=== PATIENT | female | born 1985 | race Caucasian/White ===

== ENCOUNTER 2022-05-16 00:46 | Inpatient (IN) ==
--- NOTE | 2022-05-16 01:15 | Emergency Department Note ---
History of Present Illness General Chief complaint: Alcohol Intoxication Time Seen by Provider: 05/16/22 01:03 History of Present Illness 36-year-old female presents emergency department reportedly was at [facility] for alcohol abuse and she was found to be intoxicated and they sent her via EMS for medical clearance. Patient is a very poor historian as to her current condition. Reportedly she had been drinking alcohol up until the time she presented to the rehab. There is been no reported trauma per EMS. Past Med/Surg History Immunizations: Past medical history is unobtainable at this time due to alcohol intoxication Review of Systems Unobtainable due to mental health condition and Unobtainable due to reduced consciousness Physical Exam GENERAL: Patient is awake alert but not cooperative EYES: The conjunctivae are clear. The pupils are round and reactive. EARS, NOSE, MOUTH AND THROAT: The nose is without any evidence of any deformity. Mucous membranes are moist. Tongue is midline. NECK: The neck is nontender and supple. RESPIRATORY: Normal respiratory effort is noted there is no evidence of wheezing rhonchi or rales CARDIOVASCULAR: Regular rate and rhythm noted there no murmurs rubs or gallops normal S1 normal S2. GASTROINTESTINAL: The abdomen is soft. Abdomen is nontender. PELVIS: The Pelvis is stable. No tenderness to palpation is noted. BACK: No midline tenderness or or step-off noted range of motion in flexion extension as well as rotation no signs of muscle spasm noted MUSCULOSKELETAL/EXTREMITIES: There is no evidence of gross deformity full range of motion is noted in the hips and shoulders. SKIN: There is no obvious evidence of any rash. Patient has an area of ecchymosis in the right upper extremity NEUROLOGIC: Patient is awake but not cooperative agitated Course Reevaluation(s) Reevaluation #1: Patient is somnolent at this time initially she was agitated. Patient's blood alcohol is 535 patient will be admitted. The case was discussed with the hospitalist from [facility] for admission Time: 04:20 Medical Decision Making Medical Records Attestation: I reviewed the patient's medical records. Home Medications Current Medication List: was personally reviewed by me Laboratory Data Attestation: I reviewed the patient's lab results. Result diagrams: 05/16/22 01:20 Lab Results 05/16/22 05/16/22 Range/Units 01:20 01:20 Sodium 143 (136-145) mmol/L Potassium 4.0 (3.5-5.1) mmol/L Chloride 106 (98-107) mmol/L Carbon Dioxide 24 (21-32) mmol/L Anion Gap 13 H (3-11) BUN 8 (6-23) mg/dl Creatinine 0.69 (0.6-1.2) mg/dl Est Cr Clr Drug Dosing Not Reportable Est GFR ( Amer) 128.0 ml/min Est GFR (Non-Af Amer) 110.4 ml/min BUN/Creatinine Ratio 11.6 (10-20) Glucose 96 (70-99(Fasting)) mg/dl Calcium 8.6 (8.5-10.1) mg/dl Total Bilirubin 0.4 (0.2-1.0) mg/dl AST 69 H (13-39) U/L ALT 57 H (7-52) U/L Alkaline Phosphatase 98 (34-104) U/L Total Protein 8.0 (6.0-8.3) gm/dl Albumin 4.5 (3.4-5.0) gm/dl Globulin 3.5 (2.5-4.0) gm/dl Albumin/Globulin Ratio 1.3 (0.9-2) Ethyl Alcohol mg/dL 535.7 H (<10.0) mg/dl MDM Narrative Medical decision making differential diagnosis includes alcohol intoxication alcohol abuse, drug abuse, electrolyte abnormality. Plan is to check alcohol level, observe Patient has a blood alcohol of 535. Patient cannot be medically cleared at this time. Speaking with the major case detective the patient will need inpatient alcohol detoxification. This case was discussed with Dr. Aragon from [facility] for admission Impression & Plan Alcoholic intoxication Discharge Plan Visit Data Chief Complaint: Alcohol Intoxication ED Provider: Yevgeniy Hall Discharge Problem: Alcoholic intoxication Patient Disposition: Being Evaluated by Hospitalist Forms Stand Alone Forms: My [facility] Referrals Referrals: PCP,NO [Primary Care Provider] -
[2022-05-16 02:11] LABS: Alanine Aminotransferase 57 U/L (7-52); Albumin Globulin Ratio 1.3 (0.9-2); Albumin Level 4.5 gm/dl (3.4-5.0); Alkaline Phosphatase 98 U/L (34-104); Anion Gap 13 (3-11); Aspartate Aminotransferase 69 U/L (13-39); BUN Creatinine Ratio 11.6 (10-20); Bilirubin,Total 0.4 mg/dl (0.2-1.0); Blood Urea Nitrogen 8 mg/dl (6-23); Calcium 8.6 mg/dl (8.5-10.1); Carbon Dioxide 24 mmol/L (21-32); Chloride 106 mmol/L (98-107); Est GFR (Non-African American) 110.4 ml/min; Globulin 3.5 gm/dl (2.5-4.0); Glucose 96 mg/dl (70-99(Fasting)); Sodium 143 mmol/L (136-145)
[2022-05-16] MEDS ORDERED: MULTI-VITAMIN INFUSION 10 ML, THIAMINE HCL 100 MG, FOLIC ACID 1 MG in SODIUM CHLORIDE 0... IV ONE (04:26)
[2022-05-16] MEDS ORDERED: ONDANSETRON INJ 2 MG/ML 2 ML VIAL ONE (04:27)
[2022-05-16] MEDS ORDERED: GABAPENTIN 600 MG TAB PO STA (05:09)
[2022-05-16] MEDS ORDERED: PROMETHAZINE HCL 6.25 MG in SODIUM CHLORIDE 0.9% 50 ML IV PRN ×2 (05:09→06:15)
[2022-05-16] MEDS ORDERED: GABAPENTIN 1200MG ALCOHOL WITHDRAWAL LOAD PO STA (05:15)
[2022-05-16] MEDS ORDERED: LORazepam 3 MG in SYRINGE 0 ML IV PRN (05:15)
[2022-05-16] MEDS ORDERED: Ativan IV Alcohol Withdrawal--Active Protocol IV PRN (05:15)
--- NOTE | 2022-05-16 05:17 | History & Physical Report ---
Date of Service May 16, 2022 Assessment & Plan (1) Alcohol withdrawal: Plan: Alcoholic hepatitis, good prognosis with Maddrey's DF score of less than 1 point. mood disorder, patient denies suicidality thrombocytopenia possibly from chronic liver disease Medical telemetry FABRICIO S, DT precautions Social service re: discharge planning/alcohol rehab placement DVT prophylaxis. SCDs Re: Thrombocytopenia Full code Text document was generated using Quu voice recognition software. It may contain grammatical or spelling errors. Kindly contact undersigned for clarification of any documentation item in question. History of Present Illness Chief Complaint: Detox Primary Care Provider: NO PCP History obtained from patient and records. Medical history significant for alcohol abuse, mood disorder. Patient is a resident of [place] who is in town after attempting to have herself admitted at a local detox facility. Patient had an [employer] school boat driver dropped her off at the local [facility] seeking detox. Patient noted to be drunk and disoriented. Sent to the ER for evaluation. Patient initially with reduced consciousness upon arrival at the ER. Patient patient currently more awake. Patient denies headache, chest pain, SOB, abdominal pain, suicidality. No prior history of alcohol withdrawal seizures. Medical History as above Surgical History : Kidney stone procedure, vaginal deliveries Family History : Alcoholism Personal/Social history : Non-smoker, alcohol abuse, realtor Allergies Allergy/AdvReac Type Severity Reaction Status Date / Time No Known Allergies Allergy Verified 05/16/22 04:30 Home Medications Medication Instructions Recorded Confirmed Type doxepin 150 mg capsule 150 mg PO HS 05/16/22 05/16/22 History sertraline 100 mg tablet (Zoloft) 150 mg PO DAILY 05/16/22 05/16/22 History Past Med/Surg History Social History Smoking Status: Current every day smoker Tobacco Type: E-cigarettes / Vaping Hx Alcohol Use: Yes Alcohol type: hard liquor Hx Substance Use: No Preferred Language: Amharic Communication Ability: Effective Board Member Required: No Beliefs That Will Affect Care: None Current Living Situation: Alone Feels Safe at Home: Yes Safety Concerns: Feels Safe At This Time Assistive Devices: None Review of Systems Review of Systems: As per HPI, all other systems reviewed and negative Physical Exam Physical Exam: GENERAL: Comfortable, slightly uncomfortable, restless, no respiratory distress SKIN: Normal color, warm HEENT: [place] palpebral conjunctivae, no ptosis, dry buccal mucosa NECK : Supple, no tenderness CHEST : CTA, no tenderness HEART : Tachycardic, no obvious murmurs ABDOMEN: Some distention, nontender EXTREMITIES : No LE swelling/tenderness, no other conspicuous deformities noted NEUROLOGIC : Coherent, no facial asymmetry, no other gross focality Results & Data Results & Data ([facility]) Vital Signs (Past 12 Hours) Vital Signs Pulse Pulse Resp BP BP Pulse Ox O2 Del Method 05/16/22 03:32 93 H 24 124/90 95 Room Air 05/16/22 05:14 108 H 18 109/75 94 Room Air Laboratory Results Laboratory Results Sodium 143 mmol/L (136-145) 05/16/22 01:20 Potassium 4.0 mmol/L (3.5-5.1) 05/16/22 01:20 Chloride 106 mmol/L (98-107) 05/16/22 01:20 Carbon Dioxide 24 mmol/L (21-32) 05/16/22 01:20 Anion Gap 13 (3-11) H 05/16/22 01:20 BUN 8 mg/dl (6-23) 05/16/22 01:20 Creatinine 0.69 mg/dl (0.6-1.2) 05/16/22 01:20 Est Cr Clr Drug Dosing Not Reportable 05/16/22 01:20 Est GFR ( Amer) 128.0 ml/min 05/16/22 01:20 Est GFR (Non-Af Amer) 110.4 ml/min 05/16/22 01:20 BUN/Creatinine Ratio 11.6 (10-20) 05/16/22 01:20 Glucose 96 mg/dl (70-99(Fasting)) 05/16/22 01:20 Calcium 8.6 mg/dl (8.5-10.1) 05/16/22 01:20 Total Bilirubin 0.4 mg/dl (0.2-1.0) 05/16/22 01:20 AST 69 U/L (13-39) H 05/16/22 01:20 ALT 57 U/L (7-52) H 05/16/22 01:20 Alkaline Phosphatase 98 U/L (34-104) 05/16/22 01:20 Total Protein 8.0 gm/dl (6.0-8.3) 05/16/22 01:20 Albumin 4.5 gm/dl (3.4-5.0) 05/16/22 01:20 Globulin 3.5 gm/dl (2.5-4.0) 05/16/22 01:20 Albumin/Globulin Ratio 1.3 (0.9-2) 05/16/22 01:20 Ethyl Alcohol mg/dL 535.7 mg/dl (<10.0) H 05/16/22 01:20 SARS-CoV-2, RNA, NAAT NEGATIVE (NEGATIVE) 05/16/22 04:20 Code Status & VTE Plan VTE Prophylaxis Plan VTE Prophylaxis will be ordered: Yes
[2022-05-16] MEDS ORDERED: LORazepam 2 MG/2 ML SYR ONE (05:23)
[2022-05-16] MEDS: LORazepam 2 MG in SYRINGE 0 ML IV PRN (05:26)
[2022-05-16 05:29] LABS: Basophils # (auto) 0.04 K/uL (0-0.2); Basophils % (auto) 0.5 %; Eosinophils # (auto) 0.04 K/uL (0-0.50); Eosinophils % (auto) 0.5 %; Hematocrit (blood only) 38.4 % (34.1-44.9); Hemoglobin 13.2 g/dl (12.0-16.0); Immature Granulocytes # (auto) 0.03 K/uL (0.00-0.02); Immature Granulocytes % (auto) 0.3 %; Lymphocytes # (auto) 1.87 K/uL (1.2-3.4); Lymphocytes % (auto) 21.3 %; Mean Corpuscular Hemoglobin 31.7 pg (25.0-34.0); Mean Corpuscular Hgb Conc 34.4 g/dL (32.0-36.0); Mean Corpuscular Volume 92.3 fL (80.0-100.0); Mean Platelet Volume 9.5 fL (9.4-12.3); Monocytes # (auto) 0.51 K/uL (0.24-0.82); Monocytes % (auto) 5.8 %; Neutrophils % (auto) 71.6 %; Platelet Count 101 K/uL (130-400); RDW Coefficient of Variation 13.7 % (11.5-14.5); RDW Standard Deviation 46.6 fL (36.4-46.3); Red Blood Count 4.16 M/uL (3.93-5.22); White Blood Count 8.79 K/ul (4.8-10.8)
[2022-05-16 05:35] LABS: Prothrombin Time 10.2 Seconds (9.0-12.0)
[2022-05-16] MEDS ORDERED: MAGNESIUM SULFATE / D5W 1 GM/100 ML BAG IV ONE (06:30)
[2022-05-16 06:37] LABS: Pregnancy Test, Urine Negative (Negative)
[2022-05-16 06:39] LABS: Appearance Urine Clear (Clear); Bacteria Urine Automated 1+ (Negative); Bilirubin Urine Negative (Negative); Blood Urine Trace (Negative); Color Urine Yellow; Epithelial Cell Urine Auto >30 /lpf (0-5); Glucose Urine UA Negative (Negative); Ketones Urine Negative (Negative); Leukocyte Esterase Urine Negative (Negative); Nitrite Urine Negative (Negative); Protein Urine Trace (Negative); RBC Urine Automated 0-4 /hpf (0-4); Specific Gravity Urine 1.013 (1.000-1.030); Urobilinogen Urine Negative (Negative); pH Urine 6.5 (4.5-7.5)
[2022-05-16 07:02] LABS: Amphetamines+Metham, Urine Neg (Neg); Barbiturates, Urine Neg (Neg); Benzodiazepine, Urine Neg (Neg); Cocaine, Urine Neg (Neg); MDMA (Ecstacy), Urine Neg (Neg); Methadone, Urine Neg (Neg); Opiate, Urine Neg (Neg); Phencyclidine, Urine Neg (Neg)
[2022-05-16] MEDS ORDERED: FOLIC ACID 1 MG TAB PO SCH (09:00)
[2022-05-16] MEDS: SERTRALINE HCL 50 MG TABLET PO SCH (15:48)
[2022-05-16] MEDS: GABAPENTIN 600 MG TAB PO SCH ×2 (15:48→20:40)
--- NOTE | 2022-05-16 16:51 | Communication Note ---
Date of Service: May 16, 2022 36-year-old female with history of heavy alcoholism was admitted with alcohol withdrawal. Denies any significant symptoms during examination today. Remains hemodynamically stable. Will have full progress note tomorrow. DR Alfonso Way
[2022-05-16] MEDS: LORazepam 1 MG in SYRINGE 0 ML IV PRN (17:02)
[2022-05-16] MEDS: DOXEPIN HCL 75 MG CAPSULE PO SCH (20:41)
[2022-05-17] MEDS: GABAPENTIN 600 MG TAB PO SCH ×3 (02:04→17:19)
[2022-05-17 06:36] LABS: Basophils # (auto) 0.03 K/uL (0-0.2); Basophils % (auto) 0.5 %; Eosinophils # (auto) 0.12 K/uL (0-0.50); Hemoglobin 12.7 g/dl (12.0-16.0); Immature Granulocytes # (auto) 0.01 K/uL (0.00-0.02); Immature Granulocytes % (auto) 0.2 %; Mean Corpuscular Hemoglobin 31.4 pg (25.0-34.0); Mean Corpuscular Hgb Conc 34.3 g/dL (32.0-36.0); Mean Corpuscular Volume 91.6 fL (80.0-100.0); Monocytes # (auto) 0.48 K/uL (0.24-0.82); Neutrophils # (auto) 3.85 K/uL (1.4-6.5); Neutrophils % (auto) 64.3 %; Platelet Count 73 K/uL (130-400); Platelet Estimate Decreased (Normal); RDW Coefficient of Variation 13.2 % (11.5-14.5); Red Blood Count 4.04 M/uL (3.93-5.22); White Blood Count 5.99 K/ul (4.8-10.8)
[2022-05-17 06:48] LABS: Albumin Globulin Ratio 1.2 (0.9-2); Albumin Level 3.4 gm/dl (3.4-5.0); BUN Creatinine Ratio 10.9 (10-20); Bilirubin,Total 1.5 mg/dl (0.2-1.0); Calcium 8.6 mg/dl (8.5-10.1); Creatinine Clr Calc Pharmacy 107.2 ml/min; Est GFR (African American) 131.2 ml/min; Est GFR (Non-African American) 113.2 ml/min; Globulin 2.9 gm/dl (2.5-4.0); Magnesium 1.9 mg/dl (1.7-2.4); Phosphorus 3.5 mg/dl (2.5-4.9); Potassium 3.9 mmol/L (3.5-5.1); Total Protein 6.3 gm/dl (6.0-8.3)
[2022-05-17] MEDS: FOLIC ACID 1 MG TAB PO SCH (09:50)
[2022-05-17] MEDS: SERTRALINE HCL 50 MG TABLET PO SCH (09:51)
[2022-05-17] MEDS: THIAMINE HCL 100 MG TAB PO SCH (09:51)
[2022-05-17] MEDS: MULTIVITAMIN TAB PO SCH (09:51)
--- NOTE | 2022-05-17 15:33 | Hospitalist Progress Note ---
Date of Service May 17, 2022 Assessment & Plan (1) Alcohol withdrawal: Plan: History of significant alcoholism Was any way to inpatient rehab facility and drank alcohol and was brought into the emergency room at [facility] No signs and or symptoms of withdrawal as of yet Only complaint remains weakness labs are unremarkable Likely be transferred to inpatient rehab on Saturday morning Alcoholic hepatitis, good prognosis with Maddrey's DF score of less than 1 point. Strongly advised to quit drinking Mood disorder, patient denies suicidality Thrombocytopenia possibly from chronic liver disease DVT prophylaxis. SCDs Re: Thrombocytopenia Full code Medically stable to be transferred to inpatient rehab Admission and Anticipated Discharge Date Admission Date: May 16, 2022 Subjective 05/17/2022 The patient was seen and examined in medical telemetry unit She has been stable and complains to have some weakness Denies any palpitation and does not have any tremors Awaiting placement for inpatient rehab Review of Systems Review of Systems: All systems reviewed and are unremarkable except as noted below Physical Exam Physical Exam: Lying in bed comfortably Constitutional: well developed, well nourished, + ill appearing and average body habitus Eyes: PERRL, conjunctivae normal, anicteric sclerae ENMT: external ear and nose normal, oropharynx normal Neck: trachea midline, no thyromegaly Respiratory: no respiratory distress Auscultation: lungs clear to auscultation bilaterally Cardiovascular: Rate/Rhythm: regular rate and regular rhythm; not tachycardic Heart Sounds: normal S1 and normal S2; no murmur Extremities: no edema Gastrointestinal (Abdomen): Inspection/Auscultation: normal bowel sounds; abdomen not distended Percussion/Palpation: abdomen soft; abdomen nontender Musculoskeletal: No acute arthritis in any joint Neurologic: normal touch/pain/proprioception, normal sensation to monofilament and moves all extremities; no focal motor deficits No tremors involving the outstretched hands Lymphatic: no cervical or axillary lymphadenopathy Results & Data Results & Data ([facility]) Vital Signs (Past 12 Hours) Vital Signs Temp Pulse Pulse Resp BP Pulse Ox O2 Del Method 05/17/22 11:43 37.0 C 81 17 129/81 96 Room Air 05/17/22 08:11 36.7 C 88 17 134/88 96 Room Air 05/17/22 07:30 82 05/17/22 06:15 37.2 C 81 18 147/100 H 98 Room Air Laboratory Results Short CBC 05/17/22 Range/Units 05:28 WBC 5.99 (4.8-10.8) K/ul Hgb 12.7 (12.0-16.0) g/dl Hct 37.0 (34.1-44.9) % Plt Count 73 L (130-400) K/uL BMP 05/17/22 05:28 Sodium 137 Potassium 3.9 Chloride 101 Carbon Dioxide 27 BUN 7 Creatinine 0.64 Glucose 78 Calcium 8.6 Liver Function 05/17/22 Range/Units 05:28 Total Bilirubin 1.5 H D (0.2-1.0) mg/dl AST 43 H (13-39) U/L ALT 39 (7-52) U/L Alkaline Phosphatase 91 (34-104) U/L Albumin 3.4 (3.4-5.0) gm/dl Medications Administered Current Inpatient Medications Acetaminophen (Acetaminophen 500 Mg Tab) 500 mg PO Q6H PRN PRN Reason: pain/fever Stop: 06/15/22 05:14 Doxepin HCl (Doxepin Hcl 75 Mg Capsule) 150 mg PO HS TOMAS Stop: 06/15/22 20:59 Last Admin: 05/16/22 20:41 Dose: 150 mg Folic Acid (Folic Acid 1 Mg Tab) 1 mg PO QAM [facility] Stop: 06/16/22 08:59 Last Admin: 05/17/22 09:50 Dose: 1 mg Gabapentin (Gabapentin 600 Mg Tab) 600 mg PO Q8H TOMAS Stop: 05/17/22 17:16 Last Admin: 05/17/22 09:51 Dose: 600 mg Gabapentin (Gabapentin 600 Mg Tab) 600 mg PO Q12H TOMAS Stop: 05/18/22 17:16 Gabapentin (Gabapentin 600 Mg Tab) 600 mg PO Q24H TOMAS Stop: 05/19/22 17:16 Promethazine HCl 6.25 mg/ (Sodium Chloride) 50.25 mls @ 201 mls/hr IV Q6H PRN PRN Reason: Nausea And Vomiting Stop: 06/15/22 05:08 Lorazepam 1 mg/ Syringe 1 mls @ 2 mls/min IV UD PRN; Protocol PRN Reason: EtOH Withdrawal AWSS Score 6,7 Stop: 06/15/22 05:14 Last Admin: 05/16/22 17:02 Dose: 2 mls/min Lorazepam 2 mg/ Syringe 2 mls @ 2 mls/min IV UD PRN; Protocol PRN Reason: EtOH Withdrawal AWSS Score 8,9 Stop: 06/15/22 05:14 Last Admin: 05/16/22 05:26 Dose: 2 mls/min Lorazepam 3 mg/ Syringe 3 mls @ 2 mls/min IV ONCE PRN; Protocol PRN Reason: EtOH Withdrawal AWSS Score 10 & above Multivitamins (Multivitamin Tab) 1 tab PO QAM [facility] Stop: 06/16/22 08:59 Last Admin: 05/17/22 09:51 Dose: 1 tab Sertraline HCl (Sertraline Hcl 50 Mg Tablet) 150 mg PO DAILY [facility] Stop: 06/15/22 08:59 Last Admin: 05/17/22 09:51 Dose: 150 mg Thiamine HCl (Thiamine Hcl 100 Mg Tab) 100 mg PO QAM [facility] Stop: 06/16/22 08:59 Last Admin: 05/17/22 09:51 Dose: 100 mg
[2022-05-17] MEDS: LORazepam 2 MG in SYRINGE 0 ML IV PRN (17:46)
[2022-05-17] MEDS: DOXEPIN HCL 75 MG CAPSULE PO SCH (20:04)
[2022-05-17] MEDS: MELATONIN 3 MG TAB PO PRN (22:10)
[2022-05-18] MEDS: GABAPENTIN 600 MG TAB PO SCH ×2 (06:11→17:49)
[2022-05-18] MEDS: THIAMINE HCL 100 MG TAB PO SCH (08:50)
[2022-05-18] MEDS: FOLIC ACID 1 MG TAB PO SCH (08:50)
[2022-05-18] MEDS: SERTRALINE HCL 50 MG TABLET PO SCH (08:50)
[2022-05-18] MEDS: MULTIVITAMIN TAB PO SCH (08:50)
--- NOTE | 2022-05-18 14:35 | Hospitalist Progress Note ---
Date of Service May 18, 2022 Assessment & Plan (1) Alcohol withdrawal: Plan: History of significant alcoholism Was any way to inpatient rehab facility and drank alcohol and was brought into the emergency room at [facility] No signs and or symptoms of withdrawal as of yet Only complaint remains weakness labs are unremarkable Likely be transferred to inpatient rehab on Saturday morning Does not have any acute withdrawal symptoms Remains generally weak otherwise medically stable to be transferred to [facility] rehab facility tomorrow morning Alcoholic hepatitis, good prognosis with Maddrey's DF score of less than 1 point. Strongly advised to quit drinking Mood disorder, patient denies suicidality No acute symptoms Thrombocytopenia possibly from chronic liver disease DVT prophylaxis. SCDs Re: Thrombocytopenia Full code Medically stable to be transferred to inpatient rehab Admission and Anticipated Discharge Date Admission Date: May 16, 2022 Subjective 05/17/2022 The patient was seen and examined in medical telemetry unit She has been stable and complains to have some weakness Denies any palpitation and does not have any tremors Awaiting placement for inpatient rehab 05/18/2022 The patient was seen and examined in medical telemetry unit She has been sleepy and weak but denies any other symptoms No palpitation, no abdominal discomfort and no nausea no vomiting She does have minimal tremors involving the outstretched hands Review of Systems Review of Systems: All systems reviewed and are unremarkable except as noted below Physical Exam Physical Exam: Lying in bed comfortably Constitutional: well developed, well nourished, + ill appearing and average body habitus Eyes: PERRL, conjunctivae normal, anicteric sclerae ENMT: external ear and nose normal, oropharynx normal Neck: trachea midline, no thyromegaly Respiratory: no respiratory distress Auscultation: lungs clear to auscultation bilaterally Cardiovascular: Rate/Rhythm: regular rate and regular rhythm; not tachycardic Heart Sounds: normal S1 and normal S2; no murmur Extremities: no edema Gastrointestinal (Abdomen): Inspection/Auscultation: normal bowel sounds; abdomen not distended Percussion/Palpation: abdomen soft; abdomen nontender Neurologic: normal touch/pain/proprioception and moves all extremities; no f ocal motor deficits Minimal tremors involving the outstretched hands Lymphatic: no cervical or axillary lymphadenopathy Results & Data Results & Data ([facility]) Vital Signs (Past 12 Hours) Vital Signs Temp Pulse Pulse Resp BP Pulse Ox O2 Del Method 05/18/22 11:30 Room Air 05/18/22 11:17 36.8 C 78 18 110/70 96 Room Air 05/18/22 07:49 36.5 C 85 18 109/72 94 Room Air 05/18/22 07:31 78 05/18/22 04:06 36.6 C 79 20 113/71 96 Room Air Medications Administered Current Inpatient Medications Acetaminophen (Acetaminophen 500 Mg Tab) 500 mg PO Q6H PRN PRN Reason: pain/fever Stop: 06/15/22 05:14 Doxepin HCl (Doxepin Hcl 75 Mg Capsule) 150 mg PO HS TOMAS Stop: 06/15/22 20:59 Last Admin: 05/17/22 20:04 Dose: 150 mg Folic Acid (Folic Acid 1 Mg Tab) 1 mg PO QAM [facility] Stop: 06/16/22 08:59 Last Admin: 05/18/22 08:50 Dose: 1 mg Gabapentin (Gabapentin 600 Mg Tab) 600 mg PO Q12H [facility] Stop: 05/18/22 17:16 Last Admin: 05/18/22 06:11 Dose: 600 mg Gabapentin (Gabapentin 600 Mg Tab) 600 mg PO Q24H [facility] Stop: 05/19/22 17:16 Promethazine HCl 6.25 mg/ (Sodium Chloride) 50.25 mls @ 201 mls/hr IV Q6H PRN PRN Reason: Nausea And Vomiting Stop: 06/15/22 05:08 Lorazepam 1 mg/ Syringe 1 mls @ 2 mls/min IV UD PRN; Protocol PRN Reason: EtOH Withdrawal AWSS Score 6,7 Stop: 06/15/22 05:14 Last Admin: 05/16/22 17:02 Dose: 2 mls/min Lorazepam 2 mg/ Syringe 2 mls @ 2 mls/min IV UD PRN; Protocol PRN Reason: EtOH Withdrawal AWSS Score 8,9 Stop: 06/15/22 05:14 Last Admin: 05/17/22 17:46 Dose: 2 mls/min Lorazepam 3 mg/ Syringe 3 mls @ 2 mls/min IV ONCE PRN; Protocol PRN Reason: EtOH Withdrawal AWSS Score 10 & above Melatonin (Melatonin 3 Mg Tab) 3 mg PO HS PRN PRN Reason: Sleep Stop: 06/16/22 21:30 Last Admin: 05/17/22 22:10 Dose: 3 mg Multivitamins (Multivitamin Tab) 1 tab PO QAM [facility] Stop: 06/16/22 08:59 Last Admin: 05/18/22 08:50 Dose: 1 tab Sertraline HCl (Sertraline Hcl 50 Mg Tablet) 150 mg PO DAILY [facility] Stop: 06/15/22 08:59 Last Admin: 05/18/22 08:50 Dose: 150 mg Thiamine HCl (Thiamine Hcl 100 Mg Tab) 100 mg PO QAM [facility] Stop: 06/16/22 08:59 Last Admin: 05/18/22 08:50 Dose: 100 mg
[2022-05-18] MEDS: ACETAMINOPHEN 500 MG TAB PO PRN (19:39)
[2022-05-18] MEDS: DOXEPIN HCL 75 MG CAPSULE PO SCH (22:04)
[2022-05-19] MEDS: MELATONIN 3 MG TAB PO PRN ×2 (00:01→21:50)
--- NOTE | 2022-05-19 07:25 | Hospitalist Progress Note ---
Date of Service May 19, 2022 Assessment & Plan (1) Alcohol withdrawal: Plan: History of significant alcoholism Was any way to inpatient rehab facility and drank alcohol and was brought into the emergency room at [facility] No signs and or symptoms of withdrawal as of yet Only complaint remains weakness labs are unremarkable Likely be transferred to inpatient rehab on Saturday morning Does not have any acute withdrawal symptoms Remains generally weak otherwise medically stable [facility] No withdrawal symptoms and the patient remains stable to be [facility] Alcoholic hepatitis, good prognosis with Maddrey's DF score of less than 1 point. Strongly advised to quit drinking Mood disorder, patient denies suicidality No acute symptoms Thrombocytopenia possibly from chronic liver disease DVT prophylaxis. SCDs Re: Thrombocytopenia Full code Medically stable to be transferred to inpatient rehab Admission and Anticipated Discharge Date Admission Date: May 16, 2022 Subjective 05/17/2022 The patient was seen and examined in medical telemetry unit She has been stable and complains to have some weakness Denies any palpitation and does not have any tremors Awaiting placement for inpatient rehab 05/18/2022 The patient was seen and examined in medical telemetry unit She has been sleepy and weak but denies any other symptoms No palpitation, no abdominal discomfort and no nausea no vomiting She does have minimal tremors involving the outstretched hands 05/19/2022 The patient was seen and examined in medical telemetry unit She has been stable and complains to have some weakness Denies any palpitation, any abdominal discomfort or pain, any nausea and or vomiting She does not have any tremors with outstretched hands Review of Systems Review of Systems: All systems reviewed and are unremarkable except as noted below Physical Exam Physical Exam: Lying in bed comfortably Constitutional: well developed, well nourished, + ill appearing and average body habitus Eyes: PERRL, conjunctivae normal, anicteric sclerae ENMT: external ear and nose normal, oropharynx normal Neck: trachea midline, no thyromegaly Respiratory: no respiratory distress Auscultation: lungs clear to auscultation bilaterally Cardiovascular: Rate/Rhythm: regular rate and regular rhythm; not tachycardic Heart Sounds: normal S1 and normal S2; no murmur Extremities: no edema Gastrointestinal (Abdomen): Inspection/Auscultation: normal bowel sounds; abdomen not distended Percussion/Palpation: abdomen soft; abdomen nontender Musculoskeletal: No acute arthritis in any joint Neurologic: normal touch/pain/proprioception, normal sensation to monofilament and moves all extremities; no focal motor deficits Lymphatic: no cervical or axillary lymphadenopathy Results & Data Results & Data ([facility]) Vital Signs (Past 12 Hours) Vital Signs Temp Pulse Pulse Pulse Resp BP BP 05/19/22 07:09 36.3 C L 109 H 83 18 113/79 114/77 05/19/22 06:17 36.3 C L 83 18 114/77 05/19/22 06:16 05/19/22 03:52 36.6 C 92 H 16 108/70 05/19/22 02:37 36.9 C 84 18 107/71 05/19/22 00:54 98 H 05/18/22 22:14 36.7 C 107 H 20 157/88 H 05/18/22 19:35 36.7 C 111 H 20 102/71 05/18/22 19:35 37.0 C 109 H 18 148/99 H Pulse Ox Pulse Ox O2 Del Method O2 Del Method 05/19/22 07:09 96 05/19/22 06:17 96 Room Air 05/19/22 06:16 96 Room Air 05/19/22 03:52 95 Room Air 05/19/22 02:37 97 Room Air 05/19/22 00:54 05/18/22 22:14 98 Room Air 05/18/22 19:35 98 Room Air 05/18/22 19:35 95 Room Air Medications Administered Current Inpatient Medications Acetaminophen (Acetaminophen 500 Mg Tab) 500 mg PO Q6H PRN PRN Reason: pain/fever Stop: 06/15/22 05:14 Last Admin: 05/18/22 19:39 Dose: 500 mg Doxepin HCl (Doxepin Hcl 75 Mg Capsule) 150 mg PO HS TOMAS Stop: 06/15/22 20:59 Last Admin: 05/18/22 22:04 Dose: 150 mg Folic Acid (Folic Acid 1 Mg Tab) 1 mg PO QAM [facility] Stop: 06/16/22 08:59 Last Admin: 05/18/22 08:50 Dose: 1 mg Gabapentin (Gabapentin 600 Mg Tab) 600 mg PO Q24H [facility]OM[facility] Stop: 05/19/22 17:16 Promethazine HCl 6.25 mg/ (Sodium Chloride) 50.25 mls @ 201 mls/hr IV Q6H PRN PRN Reason: Nausea And Vomiting Stop: 06/15/22 05:08 Lorazepam 1 mg/ Syringe 1 mls @ 2 mls/min IV UD PRN; Protocol PRN Reason: EtOH Withdrawal AWSS Score 6,7 Stop: 06/15/22 05:14 Last Admin: 05/16/22 17:02 Dose: 2 mls/min Lorazepam 2 mg/ Syringe 2 mls @ 2 mls/min IV UD PRN; Protocol PRN Reason: EtOH Withdrawal AWSS Score 8,9 Stop: 06/15/22 05:14 Last Admin: 05/17/22 17:46 Dose: 2 mls/min Lorazepam 3 mg/ Syringe 3 mls @ 2 mls/min IV ONCE PRN; Protocol PRN Reason: EtOH Withdrawal AWSS Score 10 & above Melatonin (Melatonin 3 Mg Tab) 3 mg PO HS PRN PRN Reason: Sleep Stop: 06/16/22 21:30 Last Admin: 05/19/22 00:01 Dose: 3 mg Multivitamins (Multivitamin Tab) 1 tab PO QAM [facility] Stop: 06/16/22 08:59 Last Admin: 05/18/22 08:50 Dose: 1 tab Sertraline HCl (Sertraline Hcl 50 Mg Tablet) 150 mg PO DAILY [facility] Stop: 06/15/22 08:59 Last Admin: 05/18/22 08:50 Dose: 150 mg Thiamine HCl (Thiamine Hcl 100 Mg Tab) 100 mg PO QAM [facility] Stop: 06/16/22 08:59 Last Admin: 05/18/22 08:50 Dose: 100 mg
[2022-05-19] MEDS: SERTRALINE HCL 50 MG TABLET PO SCH (07:50)
[2022-05-19] MEDS: FOLIC ACID 1 MG TAB PO SCH (07:51)
[2022-05-19] MEDS: THIAMINE HCL 100 MG TAB PO SCH (07:51)
[2022-05-19] MEDS: MULTIVITAMIN TAB PO SCH (07:51)
[2022-05-19] MEDS: ACETAMINOPHEN 500 MG TAB PO PRN ×2 (11:40→21:50)
[2022-05-19] MEDS ORDERED: GABAPENTIN 600 MG TAB PO SCH (17:15)
[2022-05-19] MEDS: DOXEPIN HCL 75 MG CAPSULE PO SCH (21:50)
[2022-05-20] MEDS: FOLIC ACID 1 MG TAB PO SCH (09:18)
[2022-05-20] MEDS: SERTRALINE HCL 50 MG TABLET PO SCH (09:18)
[2022-05-20] MEDS: MULTIVITAMIN TAB PO SCH (09:18)
[2022-05-20] MEDS: THIAMINE HCL 100 MG TAB PO SCH (09:18)
--- NOTE | 2022-05-20 12:02 | Hospitalist Progress Note ---
Date of Service May 20, 2022 Assessment & Plan (1) Alcohol withdrawal: Plan: History of significant alcoholism Was any way to inpatient rehab facility and drank alcohol and was brought into the emergency room at [facility] No signs and or symptoms of withdrawal as of yet Only complaint remains weakness labs are unremarkable Likely be transferred to inpatient rehab on Saturday morning Does not have any acute withdrawal symptoms Remains generally weak otherwise medically stable to [facility] No withdrawal symptoms and the patient remains stable to be [facility] No more withdrawal symptoms but she does have tachycardia with ambulation Strongly advised to drink more fluid, if she has not been drinking will need intravenous fluid Alcoholic hepatitis, good prognosis with Maddrey's DF score of less than 1 point. Strongly advised to quit drinking Mood disorder, patient denies suicidality No acute symptoms Thrombocytopenia possibly from chronic liver disease DVT prophylaxis. SCDs Re: Thrombocytopenia Full code Medically stable to be transferred to inpatient rehab Admission and Anticipated Discharge Date Admission Date: May 16, 2022 Subjective 05/17/2022 The patient was seen and examined in medical telemetry unit She has been stable and complains to have some weakness Denies any palpitation and does not have any tremors Awaiting placement for inpatient rehab 05/18/2022 The patient was seen and examined in medical telemetry unit She has been sleepy and weak but denies any other symptoms No palpitation, no abdominal discomfort and no nausea no vomiting She does have minimal tremors involving the outstretched hands 05/19/2022 The patient was seen and examined in medical telemetry unit She has been stable and complains to have some weakness Denies any palpitation, any abdominal discomfort or pain, any nausea and or vomiting She does not have any tremors with outstretched hands 05/20/2022 Patient was seen and examined in medical telemetry unit She has been stable but gets tachycardic with ambulation Denies any symptoms Review of Systems Review of Systems: All systems reviewed and are unremarkable except as noted below Physical Exam Physical Exam: Lying in bed comfortably Constitutional: well developed, well nourished, + ill appearing and average body habitus Eyes: PERRL, conjunctivae normal, anicteric sclerae ENMT: external ear and nose normal, oropharynx normal Neck: trachea midline, no thyromegaly Respiratory: no respiratory distress Auscultation: lungs clear to auscultation bilaterally Cardiovascular: Rate/Rhythm: regular rate and regular rhythm; not tachycardic Heart Sounds: normal S1 and normal S2; no murmur Extremities: no edema Gastrointestinal (Abdomen): Inspection/Auscultation: normal bowel sounds; abdomen not distended Percussion/Palpation: abdomen soft; abdomen nontender Neurologic: normal touch/pain/proprioception, normal sensation to monofilament and moves all extremities; no focal motor deficits Lymphatic: no cervical or axillary lymphadenopathy Results & Data Results & Data ([facility]) Vital Signs (Past 12 Hours) Vital Signs Temp Pulse Pulse Resp BP Pulse Ox O2 Del Method 05/20/22 11:12 36.7 C 95 H 18 110/70 96 Room Air 05/20/22 10:02 86 05/20/22 07:18 36.6 C 82 18 113/74 98 Room Air 05/20/22 03:07 36.6 C 95 H 18 105/71 97 Room Air 05/20/22 00:01 102 H Medications Administered Current Inpatient Medications Acetaminophen (Acetaminophen 500 Mg Tab) 500 mg PO Q6H PRN PRN Reason: pain/fever Stop: 06/15/22 05:14 Last Admin: 05/19/22 21:50 Dose: 500 mg Doxepin HCl (Doxepin Hcl 75 Mg Capsule) 150 mg PO HS [facility] Stop: 06/15/22 20:59 Last Admin: 05/19/22 21:50 Dose: 150 mg Folic Acid (Folic Acid 1 Mg Tab) [facility] [place] [facility] [place]: 06/16/22 08:59 Last Admin: 05/20/22 09:18 Dose: 1 mg Promethazine HCl 6.25 mg/ (Sodium Chloride) 50.25 mls @ 201 mls/hr IV Q6H PRN PRN Reason: Nausea And Vomiting Stop: 06/15/22 05:08 Lorazepam 1 mg/ Syringe 1 mls @ 2 mls/min IV UD PRN; Protocol PRN Reason: EtOH Withdrawal AWSS Score 6,7 Stop: 06/15/22 05:14 Last Admin: 05/16/22 17:02 Dose: 2 mls/min Lorazepam 2 mg/ Syringe 2 mls @ 2 mls/min IV UD PRN; Protocol PRN Reason: EtOH Withdrawal AWSS Score 8,9 Stop: 06/15/22 05:14 Last Admin: 05/17/22 17:46 Dose: 2 mls/min Melatonin (Melatonin 3 Mg Tab) 3 mg PO HS PRN PRN Reason: Sleep Stop: 06/16/22 21:30 Last Admin: 05/19/22 21:50 Dose: 3 mg Multivitamins (Multivitamin Tab) 1 tab [facility] [place] [facility] [place]: 06/16/22 08:59 Last Admin: 05/20/22 09:18 Dose: 1 tab Sertraline HCl (Sertraline Hcl 50 Mg Tablet) 150 mg PO DAILY [facility] Stop: 06/15/22 08:59 Last Admin: 05/20/22 09:18 Dose: 150 mg Thiamine HCl (Thiamine Hcl 100 Mg Tab) 100 mg PO QAM [facility] Stop: 06/16/22 08:59 Last Admin: 05/20/22 09:18 Dose: 100 mg
[2022-05-20] MEDS: LORazepam 1 MG in SYRINGE 0 ML IV PRN ×2 (15:25→22:37)
[2022-05-20] MEDS: ACETAMINOPHEN 500 MG TAB PO PRN (15:26)
[2022-05-20] MEDS: hydrOXYzine HCl 25 MG TAB PO PRN (17:59)
[2022-05-20] MEDS ORDERED: cloNIDine HCL 0.1 MG TAB PO PRN (19:26)
[2022-05-20] MEDS ORDERED: METOPROLOL TARTRATE 1 MG/ML VIAL IV STA (19:26)
[2022-05-20] MEDS: LORazepam 2 MG in SYRINGE 0 ML IV PRN (19:27)
[2022-05-20] MEDS: DOXEPIN HCL 75 MG CAPSULE PO SCH (20:00)
[2022-05-20] MEDS: guaiFENesin 600 MG TABCR PO SCH (20:00)
[2022-05-20 20:29] LABS: BUN Creatinine Ratio 20.8 (10-20); Calcium 8.9 mg/dl (8.5-10.1); Creatinine Clr Calc Pharmacy 95.3 ml/min; Est GFR (African American) 123.1 ml/min; Est GFR (Non-African American) 106.2 ml/min; Magnesium 1.7 mg/dl (1.7-2.4); Phosphorus 3.4 mg/dl (2.5-4.9); Potassium 3.9 mmol/L (3.5-5.1)
[2022-05-20] MEDS: MELATONIN 3 MG TAB PO PRN (22:37)
[2022-05-20] MEDS ORDERED: MAGNESIUM SULFATE / D5W 1 GM/100 ML BAG IV ONE (23:47)
[2022-05-20] MEDS ORDERED: POTASSIUM CHLORIDE 20 MEQ/15 ML UDC PO STA (23:47)
[2022-05-21] MEDS: guaiFENesin 600 MG TABCR PO SCH ×2 (08:53→20:41)
[2022-05-21] MEDS: THIAMINE HCL 100 MG TAB PO SCH (08:53)
[2022-05-21] MEDS: FOLIC ACID 1 MG TAB PO SCH (08:54)
[2022-05-21] MEDS: SERTRALINE HCL 50 MG TABLET PO SCH (08:54)
[2022-05-21] MEDS: MULTIVITAMIN TAB PO SCH (08:54)
[2022-05-21] MEDS: hydrOXYzine HCl 25 MG TAB PO PRN (13:28)
[2022-05-21] MEDS: ACETAMINOPHEN 500 MG TAB PO PRN (14:11)
[2022-05-21] MEDS: SODIUM CHLORIDE 0.9% 1000ML 1,000 ML IV SCH ×2 (15:20→22:46)
[2022-05-21] MEDS: LORazepam 1 MG in SYRINGE 0 ML IV PRN (15:32)
--- NOTE | 2022-05-21 16:56 | Hospitalist Progress Note ---
Date of Service May 21, 2022 Assessment & Plan (1) Alcohol withdrawal: Plan: History of significant alcoholism Was any way to inpatient rehab facility and drank alcohol and was brought into the emergency room at [facility] No signs and or symptoms of withdrawal as of yet Only complaint remains weakness labs are unremarkable Likely be transferred to inpatient rehab on Saturday morning Does not have any acute withdrawal symptoms Remains generally weak otherwise medically stable [facility] No withdrawal symptoms and the patient remains stable to be [facility] No more withdrawal symptoms but she does have tachycardia with ambulation Strongly advised to drink more fluid, if she has not been drinking will need intravenous fluid Remains tachycardic with ambulation Will give small amount of IV fluid, already got dose of IV Ativan Plan to discharge home or rehab tomorrow Alcoholic hepatitis, good prognosis with Maddrey's DF score of less than 1 point. Strongly advised to quit drinking Mood disorder, patient denies suicidality No acute symptoms Thrombocytopenia possibly from chronic liver disease DVT prophylaxis. SCDs Re: Thrombocytopenia Full code Medically stable to be transferred to inpatient rehab Admission and Anticipated Discharge Date Admission Date: May 16, 2022 Subjective 05/17/2022 The patient was seen and examined in medical telemetry unit She has been stable and complains to have some weakness Denies any palpitation and does not have any tremors Awaiting placement for inpatient rehab 05/18/2022 The patient was seen and examined in medical telemetry unit She has been sleepy and weak but denies any other symptoms No palpitation, no abdominal discomfort and no nausea no vomiting She does have minimal tremors involving the outstretched hands 05/19/2022 The patient was seen and examined in medical telemetry unit She has been stable and complains to have some weakness Denies any palpitation, any abdominal discomfort or pain, any nausea and or vomiting She does not have any tremors with outstretched hands 05/20/2022 Patient was seen and examined in medical telemetry unit She has been stable but gets tachycardic with ambulation Denies any symptoms 05/21/2022 The patient was seen and examined in medical telemetry unit She has been feeling much better and denies any symptoms at rest She noted to be tachycardic up to 160/min with ambulation without any s ignificant symptoms He does have minimal tremors involving the outstretched hands Review of Systems Review of Systems: All systems reviewed and are unremarkable except as noted below Physical Exam Physical Exam: Lying in bed comfortably Constitutional: well developed, well nourished, + ill appearing and average body habitus Eyes: PERRL, conjunctivae normal, anicteric sclerae ENMT: external ear and nose normal, oropharynx normal Neck: trachea midline, no thyromegaly Respiratory: no respiratory distress Auscultation: lungs clear to auscultation bilaterally Cardiovascular: Rate/Rhythm: regular rate and regular rhythm; not tachycardic Heart Sounds: normal S1 and normal S2; no murmur Extremities: no edema Gastrointestinal (Abdomen): Inspection/Auscultation: normal bowel sounds; abdomen not distended Percussion/Palpation: abdomen soft; abdomen nontender Musculoskeletal: No acute arthritis in any joint Neurologic: normal touch/pain/proprioception, normal sensation to monofilament and moves all extremities; no focal motor deficits Lymphatic: no cervical or axillary lymphadenopathy Results & Data Results & Data ([facility]) Vital Signs (Past 12 Hours) Vital Signs Temp Pulse Pulse Resp BP BP Pulse Ox 05/21/22 16:04 168 H 05/21/22 15:32 36.8 C 136 H 19 134/96 97 05/21/22 12:59 36.8 C 118 H 18 137/88 98 05/21/22 11:27 36.8 C 118 H 20 127/84 98 05/21/22 06:14 77 05/21/22 06:14 36.6 C 78 18 110/75 97 05/21/22 06:14 Pulse Ox O2 Del Method O2 Del Method 05/21/22 16:04 05/21/22 15:32 Room Air 05/21/22 12:59 Room Air 05/21/22 11:27 Room Air 05/21/22 06:14 05/21/22 06:14 Room Air 05/21/22 06:14 97 Room Air Laboratory Results [facility] 05/20/22 19:52 Sodium 137 Potassium 3.9 Chloride 106 Carbon Dioxide 27 BUN 15 Creatinine 0.72 Glucose 95 Calcium 8.9 Medications Administered Current Inpatient Medications Acetaminophen (Acetaminophen 500 Mg Tab) 500 mg PO Q6H PRN PRN Reason: pain/fever Stop: 06/15/22 05:14 Last Admin: 05/21/22 14:11 Dose: 500 mg Clonidine HCl (Clonidine Hcl 0.1 Mg Tab) 0.1 mg PO Q4H PRN PRN Reason: Hypertension Stop: 06/19/22 19:25 Last Admin: 05/21/22 14:22 Dose: 0.1 mg Doxepin HCl (Doxepin Hcl 75 Mg Capsule) 150 mg PO HS [facility] Stop: 06/15/22 20:59 Last Admin: 05/20/22 20:00 Dose: 150 mg Folic Acid (Folic Acid 1 Mg Tab) 1 mg PO QAM [facility] Stop: 06/16/22 08:59 Last Admin: 05/21/22 08:54 Dose: 1 mg Guaifenesin (Guaifenesin 600 Mg Tabcr) 1,200 mg PO Q12 [facility] Stop: 06/19/22 20:59 Last Admin: 05/21/22 08:53 Dose: 1,200 mg Hydroxyzine HCl (Hydroxyzine Hcl 25 Mg Tab) 25 mg PO Q8H PRN PRN Reason: Anxiety/Agitation Stop: 06/19/22 15:43 Last Admin: 05/21/22 13:28 Dose: 25 mg Lorazepam 1 mg/ Syringe 1 mls @ 2 mls/min IV UD PRN; Protocol PRN Reason: EtOH Withdrawal AWSS Score 6,7 Stop: 06/15/22 05:14 Last Admin: 05/21/22 15:32 Dose: 2 mls/min Lorazepam 2 mg/ Syringe 2 mls @ 2 mls/min IV UD PRN; Protocol PRN Reason: EtOH Withdrawal AWSS Score 8,9 Stop: 06/15/22 05:14 Last Admin: 05/20/22 19:27 Dose: 2 mls/min Sodium Chloride (Nss 1000ml) 1,000 mls @ 125 mls/hr IV .Q8H [facility] Stop: 05/22/22 14:44 Last Admin: 05/21/22 15:20 Dose: 125 mls/hr Melatonin (Melatonin 3 Mg Tab) 3 mg PO HS PRN PRN Reason: Sleep Stop: 06/16/22 21:30 Last Admin: 05/20/22 22:37 Dose: 3 mg Multivitamins (Multivitamin Tab) 1 tab PO QAM [facility] Stop: 06/16/22 08:59 Last Admin: 05/21/22 08:54 Dose: 1 tab Sertraline HCl (Sertraline Hcl 50 Mg Tablet) 150 mg PO DAILY [facility] Stop: 06/15/22 08:59 Last Admin: 05/21/22 08:54 Dose: 150 mg Thiamine HCl (Thiamine Hcl 100 Mg Tab) 100 mg PO QAM [facility] Stop: 06/16/22 08:59 Last Admin: 05/21/22 08:53 Dose: 100 mg
[2022-05-21] MEDS: DOXEPIN HCL 75 MG CAPSULE PO SCH (20:41)
[2022-05-22] MEDS: SODIUM CHLORIDE 0.9% 1000ML 1,000 ML IV SCH (05:45)
[2022-05-22] MEDS: guaiFENesin 600 MG TABCR PO SCH (08:08)
[2022-05-22] MEDS: SERTRALINE HCL 50 MG TABLET PO SCH (08:08)
[2022-05-22] MEDS: THIAMINE HCL 100 MG TAB PO SCH (08:08)
[2022-05-22] MEDS: FOLIC ACID 1 MG TAB PO SCH (08:09)
[2022-05-22] MEDS: MULTIVITAMIN TAB PO SCH (08:09)
[2022-05-22] MEDS ORDERED: METOPROLOL SUCC 25MG EXT REL TAB PO SCH (09:15)
--- NOTE | 2022-05-22 12:10 | Hospitalist Progress Note ---
Date of Service May 22, 2022 Assessment & Plan (1) Alcohol withdrawal: Plan: History of significant alcoholism Was any way to inpatient rehab facility and drank alcohol and was brought into the emergency room at [facility] No signs and or symptoms of withdrawal as of yet Only complaint remains weakness labs are unremarkable Likely be transferred to inpatient rehab on Saturday morning Does not have any acute withdrawal symptoms Remains generally weak otherwise medically stable [facility] No withdrawal symptoms and the patient remains stable to be [facility] No more withdrawal symptoms but she does have tachycardia with ambulation Strongly advised to drink more fluid, if she has not been drinking will need intravenous fluid Remains tachycardic with ambulation Will give small amount of IV fluid, already got dose of IV Ativan Remains tachycardic around 120s with ambulation She was prescribed Toprol-XL as an outpatient for ongoing tachycardia Started with Toprol-XL 12.5 mg daily Alcoholic hepatitis, good prognosis with Maddrey's DF score of less than 1 point. Strongly advised to quit drinking She was discharged home this afternoon Discussed in detail with the patient and her boyfriend in detail Mood disorder, patient denies suicidality No acute symptoms Thrombocytopenia possibly from chronic liver disease DVT prophylaxis. SCDs Re: Thrombocytopenia Full code Medically stable to be transferred to inpatient rehab Admission and Anticipated Discharge Date Admission Date: May 16, 2022 Subjective 05/17/2022 The patient was seen and examined in medical telemetry unit She has been stable and complains to have some weakness Denies any palpitation and does not have any tremors Awaiting placement for inpatient rehab 05/18/2022 The patient was seen and examined in medical telemetry unit She has been sleepy and weak but denies any other symptoms No palpitation, no abdominal discomfort and no nausea no vomiting She does have minimal tremors involving the outstretched hands 05/19/2022 The patient was seen and examined in medical telemetry unit She has been stable and complains to have some weakness Denies any palpitation, any abdominal discomfort or pain, any nausea and or vomiting She does not have any tremors with outstretched hands 05/20/2022 Patient was seen and examined in medical telemetry unit She has been stable but gets tachycardic with ambulation Denies any symptoms 05/21/2022 The patient was seen and examined in medical telemetry unit She has been feeling much better and denies any symptoms at rest She noted to be tachycardic up to 160/min with ambulation without any significant symptoms He does have minimal tremors involving the outstretched hands 05/22/2022 Patient was seen and examined in medical telemetry unit She has been feeling much better still having some tachycardia with ambulation Denies any symptoms with the tachycardia She was given a small dose of beta-ranjana Will be discharged home this afternoon Review of Systems Review of Systems: All systems reviewed and are unremarkable except as noted below Physical Exam Physical Exam: Lying in bed comfortably Constitutional: well developed, well nourished, + ill appearing and average body habitus Eyes: PERRL, conjunctivae normal, anicteric sclerae ENMT: external ear and nose normal, oropharynx normal Neck: trachea midline, no thyromegaly Respiratory: no respiratory distress Auscultation: lungs clear to ausc ultation bilaterally Cardiovascular: Rate/Rhythm: regular rate and regular rhythm; not tachycardic Heart Sounds: normal S1 and normal S2; no murmur Extremities: no edema Gastrointestinal (Abdomen): Inspection/Auscultation: normal bowel sounds; abdomen not distended Percussion/Palpation: abdomen soft; abdomen nontender Neurologic: normal touch/pain/proprioception, normal sensation to monofilament and moves all extremities; no focal motor deficits Lymphatic: no cervical or axillary lymphadenopathy Results & Data Results & Data ([facility]) Vital Signs (Past 12 Hours) Vital Signs Temp Pulse Pulse Resp BP Pulse Ox O2 Del Method 05/22/22 11:34 37 C 134 H 21 121/91 99 Room Air 05/22/22 08:30 74 05/22/22 07:26 36.7 C 82 19 109/64 97 Room Air 05/22/22 02:42 36.8 C 85 19 111/74 96 Room Air Medications Administered Current Inpatient Medications Acetaminophen (Acetaminophen 500 Mg Tab) 500 mg PO Q6H PRN PRN Reason: pain/fever Stop: 06/15/22 05:14 Last Admin: 05/21/22 14:11 Dose: 500 mg Clonidine HCl (Clonidine Hcl 0.1 Mg Tab) 0.1 mg PO Q4H PRN PRN Reason: Hypertension Stop: 06/19/22 19:25 Last Admin: 05/21/22 14:22 Dose: 0.1 mg Doxepin HCl (Doxepin Hcl 75 Mg Capsule) 150 mg PO HS [facility] Stop: 06/15/22 20:59 Last Admin: 05/21/22 20:41 Dose: 150 mg Folic Acid (Folic Acid 1 Mg Tab) 1 mg PO QAM [facility] Stop: 06/16/22 08:59 Last Admin: 05/22/22 08:09 Dose: 1 mg Guaifenesin (Guaifenesin 600 Mg Tabcr) 1,200 mg PO Q12 [facility] Stop: 06/19/22 20:59 Last Admin: 05/22/22 08:08 Dose: 1,200 mg Hydroxyzine HCl (Hydroxyzine Hcl 25 Mg Tab) 25 mg PO Q8H PRN PRN Reason: Anxiety/Agitation Stop: 06/19/22 15:43 Last Admin: 05/21/22 13:28 Dose: 25 mg Lorazepam 1 mg/ Syringe 1 mls @ 2 mls/min IV UD PRN; Protocol PRN Reason: EtOH Withdrawal AWSS Score 6,7 Stop: 06/15/22 05:14 Last Admin: 05/21/22 15:32 Dose: 2 mls/min Lorazepam 2 mg/ Syringe 2 mls @ 2 mls/min IV UD PRN; Protocol PRN Reason: EtOH Withdrawal AWSS Score 8,9 Stop: 06/15/22 05:14 Last Admin: 05/20/22 19:27 Dose: 2 mls/min Sodium Chloride (Nss 1000ml) 1,000 mls @ 125 mls/hr IV .Q8H [facility] Stop: 05/22/22 14:44 Last Admin: 05/22/22 05:45 Dose: 125 mls/hr Melatonin (Melatonin 3 Mg Tab) 3 mg PO HS PRN PRN Reason: Sleep Stop: 06/16/22 21:30 Last Admin: 05/20/22 22:37 Dose: 3 mg Metoprolol Succinate (Metoprolol Succ 25mg Ext Rel Tab) [facility] [place] Stop: 06/21/22 09:14 Last Admin: 05/22/22 09:44 Dose: 12.5 mg Multivitamins (Multivitamin Tab) [facility] [place] Stop: 06/16/22 08:59 Last Admin: 05/22/22 08:09 Dose: 1 tab Sertraline HCl (Sertraline Hcl 50 Mg Tablet) 150 mg PO DAILY [facility] Stop: 06/15/22 08:59 Last Admin: 05/22/22 08:08 Dose: 150 mg Thiamine HCl (Thiamine Hcl 100 Mg Tab) 100 mg PO QAM [facility] Stop: 06/16/22 08:59 Last Admin: 05/22/22 08:08 Dose: 100 mg
--- NOTE | 2022-05-22 17:57 | Discharge Summary ---
Date of Service May 22, 2022 Admission HPI Per Admitting Provider History obtained from patient and records. Medical history significant for alcohol abuse, mood disorder. Patient is a resident of [place] who is in town after attempting to have herself admitted at a local detox facility. Patient had an Uber grab driver dropped her off at the local [facility] seeking detox. Patient noted to be drunk and disoriented. Sent to the ER for evaluation. Patient initially with reduced consciousness upon arrival at the ER. Patient patient currently more awake. Patient denies headache, chest pain, SOB, abdominal pain, suicidality. No prior history of alcohol withdrawal seizures. Medical History as above Surgical History : Kidney stone procedure, vaginal deliveries Family History : Alcoholism Personal/Social history : Non-smoker, alcohol abuse, realtor Admission Exam Per Admitting Provider Physical Exam: GENERAL: Comfortable, slightly uncomfortable, restless, no respiratory distress SKIN: Normal color, warm HEENT: [place] palpebral conjunctivae, no ptosis, dry buccal mucosa NECK : Supple, no tenderness CHEST : CTA, no tenderness HEART : Tachycardic, no obvious murmurs ABDOMEN: Some distention, nontender EXTREMITIES : No LE swelling/tenderness, no other conspicuous deformities noted NEUROLOGIC : Coherent, no facial asymmetry, no other gross focality Principal Diagnosis Alcoholism with alcohol withdrawal, depression Discharge Exam Lying in bed comfortably Constitutional well developed, well nourished, + ill appearing and average body habitus Eyes PERRL, conjunctivae normal, anicteric sclerae ENMT external ear and nose normal, oropharynx normal Neck trachea midline, no thyromegaly Respiratory no respiratory distress Auscultation: lungs clear to auscultation bilaterally Cardiovascular Rate/Rhythm: regular rate and regular rhythm; not tachycardic Heart Sounds: normal S1 and normal S2; no murmur Extremities: no edema Gastrointestinal (Abdomen) Inspection/Auscultation: normal bowel sounds; abdomen not distended Percussion/Palpation: abdomen soft; abdomen nontender Neurologic normal touch/pain/proprioception, normal sensation to monofilament and moves all extremities; no focal motor deficits Lymphatic no cervical or axillary lymphadenopathy Discharge Data Allergies Allergy/AdvReac Type Severity Reaction Status Date / Time No Known Allergies Allergy Verified 05/16/22 04:30 Consultations 05/16/22 04:18 ED Decision to Admit Stat Hospital Course (1) Alcohol withdrawal: History of significant alcoholism Was any way to inpatient rehab facility and drank alcohol and was brought into the emergency room at [facility] No signs and or symptoms of withdrawal as of yet Only complaint remains weakness labs are unremarkable Likely be transferred to inpatient rehab on Saturday morning Does not have any acute withdrawal symptoms Remains generally weak otherwise medically stable [facility] No withdrawal symptoms and the patient remains stable to be [facility] No more withdrawal symptoms but she does have tachycardia with ambulation Strongly advised to drink more fluid, if she has not been drinking will need intravenous fluid Remains tachycardic with ambulation Will give small amount of IV fluid, already got dose of IV Ativan Remains tachycardic around 120s with ambulation She was prescribed Toprol-XL as an outpatient for ongoing tachycardia Started with Toprol-XL 12.5 mg daily Alcoholic hepatitis, good prognosis with Maddrey's DF score of less than 1 point. Strongly advised to quit drinking She was discharged home this afternoon Discussed in detail with the patient and her boyfriend in detail Mood disorder, patient denies suicidality No acute symptoms Thrombocytopenia possibly from chronic liver disease DVT prophylaxis. SCDs Re: Thrombocytopenia Full code Medically stable to be transferred to inpatient rehab Total Time Total Time Spent Total Time Spent (In Minutes): 35 minutes Discharge Plan Discharge Items Patient Disposition: Home - Self-Care Reason For Visit: ETOH WITHDRAWAL Discharge Diagnosis: Alcoholism with alcohol withdrawal, depression Condition on Discharge: Fair Activity: Resume your previous activity Non-emergency contact: Primary Care Provider Call non-emergency contact if: you have any medication questions and your symptoms worsen Follow-up/Referrals: PCP,NO [Primary Care Provider] - Diet: Regular Addtl Attending Provider Instructions: Please take precautions to avoid fall Strongly advised to quit drinking Please make an appointment with your primary care provider within 7 days following discharge from the facility Please take your medications as advised She has the medications at home-the prescriptions were not sent Pending Studies at Discharge: No Stand-Alone Forms: [facility], Smoking Cessation Medications and DC Order Prescriptions: New thiamine HCl (vitamin B1) 100 mg Tablet 100 mg PO QAM 30 Days Qty: 30 0RF folic acid 1 mg Tablet 1 mg PO QAM 30 Days Qty: 30 0RF multivitamin with folic acid [Daily-Bernie (with folic acid)] 400 mcg Tablet 1 tab PO QAM 30 Days Qty: 30 0RF metoprolol succinate 25 mg Tablet Extended Release 24 Hr 12.5 mg PO QAM Qty: 1 0RF Continued sertraline [Zoloft] 100 mg Tablet 150 mg PO DAILY doxepin 150 mg Capsule 150 mg PO HS Discharge Orders: Discharge Order (Routine); Ordered 05/22/22 Ordered By: Juan Daniel Hall/Other Patient Handouts: Social Drinking vs Problem Drinking, SCI Alcohol Use, TBI Substance Abuse Admission Data Admit Date/Time: 05/16/22 05:12 Attending Provider: Juan Daniel Way Admit Provider: Hemanth Medina Primary Care Provider: PCP,NO Other Providers: Hemanth Medina Other Interventions: Discharge Summary Assessment (RN) Last Done: 05/22/22 12:37
== END 2022-05-22 13:23 | disposition home or self-care (01) | DRG 897 ==
LOC: ED 00:46 → EDINP 05:12 → SUATTDRO 05:12 → 2W 05:38
DX: K70.10 Alcoholic hepatitis without ascites; D69.59 Other secondary thrombocytopenia; F17.290 Nicotine dependence, other tobacco product, uncomplicated; F10.239 Alcohol dependence with withdrawal, unspecified; F32.A Depression, unspecified; F10.221 Alcohol dependence with intoxication delirium; U07.0 Vaping-related disorder